=== PATIENT | male | born 1975 | race Caucasian/White ===

== ENCOUNTER 2018-08-24 10:35 | Emergency (ER) | payer OTHER ==
--- NOTE | 2018-08-24 10:51 | ER Report ---
History and Physical Time Seen By MD: 10:49 Hx. of Stated Complaint: pt reports he was changing out a meter and tried to get up and "his left knee cap was out of place" HPI/ROS CHIEF COMPLAINT: Left knee pain HISTORY OF PRESENT ILLNESS: This is a 42-year-old male who presents to the emergency department for left knee pain. Patient states that he was at work about 45 minutes prior to arrival when he now down to do some work on a meter, when he went to stand up he had significant medial left knee pain with decreased range of motion. Patient denies any traumatic injuries. No previous knee surgeries. CMS intact distal to the injury. No fevers or chills. No other joint complaints. No nausea or vomiting. REVIEW OF SYSTEMS: Respiratory: No cough, no dyspnea. Cardiovascular: No chest pain, no palpitations. Gastrointestinal: No vomiting, no abdominal pain. Musculoskeletal: As above. Allergies: Coded Allergies: honey (Verified Allergy, Unknown, 08/24/18) Home Meds Active Scripts Cyclobenzaprine Hcl (CYCLOBENZAPRINE HCL) 10 Mg Tablet, 5-10 MG PO TID PRN for MUSCLE SPASMS, #9 TAB 0 Refills Prov:LIZY SANCHEZ Gianfranco SHELL SORTER-BC 08/24/18 Past Medical/Surgical History Patient has a past medical and surgical history of hernia repair, right knee surgery right elbow, right tib-fib and right ankle. Reviewed Nurses Notes: Yes Hx Alcohol Use: Yes ("2 beers/day") Constitutional Vital Sign - Last 24 Hours 08/24/18 08/24/18 08/24/18 08/24/18 10:35 10:40 10:44 11:00 Temp 98.3 Pulse ??? 91 Resp 18 B/P (MAP) 156/102 156/102 (120) 152/101 (118) Pulse Ox 95 O2 Delivery Room Air 08/24/18 08/24/18 08/24/18 08/24/18 11:05 11:32 11:35 12:00 Pulse 88 82 B/P (MAP) 163/112 (129) 152/87 (108) Pulse Ox 93 96 Physical Exam General Appearance: The patient is alert, has no immediate need for airway protection and no current signs of toxicity. Eyes: Pupils equal and round no injection. Respiratory: Chest is non tender, lungs are clear to auscultation. Cardiac: regular rate and rhythm. Gastrointestinal: Abdomen is soft and non tender, no masses, bowel sounds normal. Musculoskeletal: Neck: Neck is supple and non tender. Extremities able to extend and lift the left leg up off the gurney. Pain with flexion and extension to the left knee. Mild posterior drawer laxity as compared to the right knee, otherwise unremarkable exam. Negative valgus and varus pain. Skin: No rashes or lesions. DIFFERENTIAL DIAGNOSIS: After history and physical exam differential diagnosis was considered for contusion, meniscus tear. Medical Decision Making EKG/Imaging Imaging [place] [facility] [place] Patient: Tang Sanchez : 1975 Visit/Account:[id number] Date of Sevice: 08/24/2018 KNEE 4 VIEW LEFT HISTORY: left knee inj Three-view examination of the left knee. FINDINGS: No acute bony pathology. The distal femur and proximal tibia/fibular well- maintained. Patellar sunrise views demonstrates no patellar tilt or tr anslation. There is no joint effusion. Soft tissues unremarkable. IMPRESSION 1. Negative left knee Report Dictated By: Solomon Zaman MD at 08/24/2018 11:38 AM Report E-Signed By: Solomon Zaman MD at 08/24/2018 11:59 AM WSN:[email or web address] ED Course/Re-evaluation ED Course The patient was admitted to room. A history and physical were obtained. Differential diagnoses were considered. An x-ray of the left knee was negative for any acute osseous abnormalities. Patient was given 60 mg IM Toradol, 60 mg IM Norflex. Patient did have some relief with the injections. Patient was given a knee immobilizer and crutches. I did review the imaging results with the patient. I did tell him that I'm concerned that this could be a meniscus injury or some ligamentous laxity. The patient expressed understanding. I did tell him that I want [facility] as possible for reevaluation. The patient exposed understanding and was discharged home. Patient was also sent home with a prescription for Flexeril. Instructed to take ibuprofen or Tylenol for additional pain relief. Patient and other questions or concerns at this time. Decision to Disposition Date: Aug 24, 2018 Decision to Disposition Time: 12:16 Depart Departure Latest Vital Signs Vital Signs Date Time Temp Pulse Resp B/P (MAP) Pulse Ox O2 Delivery O2 Flow Rate FiO2 08/24/18 12:00 152/87 (108) 08/24/18 11:35 82 96 08/24/18 10:40 98.3 18 Room Air Impression: Primary Impression: Left knee pain Condition: Improved Disposition: HOME OR SELF-CARE Referrals: CANDY KOTHARI MD 1 Week New Scripts Cyclobenzaprine Hcl (CYCLOBENZAPRINE HCL) 10 Mg Tablet 5-10 MG PO TID PRN for MUSCLE SPASMS, #9 TAB 0 Refills Prov: LIZY SANCHEZ SHELL SORTER-BC 08/24/18 Patient Instructions: Knee Immobilizer (ED), Knee Pain (ED) Additional Instructions: X-ray is negative for any acute bony injury. Wear the knee immobilizer for comfort. Take ibuprofen or Tylenol as needed for pain. Follow-up with [facility] as soon as possible for further evaluation and treatment and release back to work, I would call today, see if you can schedule an appointment with any of the orthopedists.. Drink plenty of water. Get plenty of rest. Return to the emergency department for any other concerns or worsening symptoms. Concern for meniscus or ligamentous injury. Problem Qualifiers Primary Impression: Left knee pain Chronicity: acute Qualified Codes: M25.562 - Pain in left knee LIZY SANCHEZ SHELL SORTER-BC Aug 24, 2018 10:51
[2018-08-24] MEDS ORDERED: KETOROLAC 60 MG/2 ML VIAL IM ONE (11:00)
[2018-08-24] MEDS ORDERED: ORPHENADRINE 60MG/2ML INJ IM ONE (11:00)
[2018-08-24 12:00] VITALS: BP 152/87
--- NOTE | 2018-08-24 12:02 | RADIOLOGY IMAGING REPORT ---
FACILITY: [facility] - [place] PATIENT NAME: Tang Sanchez : 1975 MR: [id number] V: [id number] EXAM DATE: ORDERING PHYSICIAN: LIZY SANCHEZ TECHNOLOGIST: Location: [facility] - [place] Patient: Tang Sanchez : 1975 Visit/Account:[id number] Date of Sevice: 08/24/2018 KNEE 4 VIEW LEFT HISTORY: left knee inj Three-view examination of the left knee. FINDINGS: No acute bony pathology. The distal femur and proximal tibia/fibular well-maintained. Patellar sunr ise views demonstrates no patellar tilt or translation. There is no joint effusion. Soft tissues un remarkable. IMPRESSION 1. Negative left knee Report Dictated By: Solomon Zaman MD at 08/24/2018 11:38 AM Report E-Signed By: Solomon Zaman MD at 08/24/2018 11:59 AM WSN:[email or web address]
[2018-08-24] MEDS ORDERED: CYCL10TA29 PO (12:16)
== END 2018-08-24 12:18 | disposition home or self-care (01) ==
LOC: ER 10:52
DX: M25.562 Pain in left knee (principal)
CPT/HCPCS: 73564; 96372; 99283; J1885; J2360; L1830